=== PATIENT | male | born 1990 | race Caucasian/White ===

== ENCOUNTER 2022-02-14 14:33 | Emergency (ER) | payer MEDICAID ==
[~2022-02-14] VITALS: Ht 165.1 cm; Wt 67.0 kg
[2022-02-14 15:25] VITALS: BP 127/78
== END 2022-02-14 17:06 | disposition home or self-care (01) ==
LOC: EDBD 14:33 → ER 14:33
DX: R42 Dizziness and giddiness (principal); E11.9 Type 2 diabetes mellitus without complications; Z86.73 Personal history of transient ischemic attack (TIA), and cerebral infarction without residual deficits
CPT/HCPCS: 99283